=== PATIENT | female | born 1985 | race Two or more races ===

== ENCOUNTER → 2017-02-09 | Outpatient (CLI) | payer MEDICAID | END | disposition home or self-care (01) | LOC: CFH 08:14 | PROVIDERS: ATTEND Genetic Counselor, MS | DX: N94.10 Unspecified dyspareunia (principal) | CPT/HCPCS: 76856 ==

== ENCOUNTER 2021-01-21 21:29 | Emergency (ER) | payer MEDICAID ==
[~2021-01-21] VITALS: Ht 162.6 cm; Wt 72.8 kg
--- NOTE | 2021-01-21 21:36 | NUR ---
EKG DONE IN TRIAGE.
--- NOTE | 2021-01-21 23:07 | NUR ---
PA STUDENT AT BEDSIDE FOR ASSESSMENT.
[2021-01-21] MEDS ORDERED: PLEASE ENTER ALLERGIES MC SCH (23:45)
[2021-01-22] MEDS ORDERED: ONDANSETRON 2MG/ML, 2ML IVPush ONE
[2021-01-22] MEDS ORDERED: ONDANSETRON 2MG/ML, 2ML ONE
[2021-01-22] MEDS ORDERED: SODIUM CHLORIDE FLUSH 10ML SYR IVF ONE
[2021-01-22] MEDS ORDERED: KETOROLAC 30 MG/1 ML IVPush ONE
[2021-01-22] MEDS ORDERED: KETOROLAC 30 MG/1 ML ONE
[2021-01-22 00:07] LABS: BASOPHILS % (AUTO) 1 % (0-1); EOSINOPHILS % (AUTO) 1 % (1-7); LYMPHOCYTES % (AUTO) 30 % (22-44); MEAN CORPUSCULAR HEMOGLOBIN 29.4 pg (27.0-34.8); MEAN CORPUSCULAR HGB CONC 33.4 g/dL (32.4-35.8); MEAN PLATELET VOLUME 8.1 fL (7.4-10.4); MONOCYTES % (AUTO) 9 % (2-9); NEUTROPHILS % (AUTO) 59 % (42-75); PLATELET COUNT 310 x10^3/uL (130-400); RED BLOOD COUNT 4.29 x10^6/uL (3.82-5.3); RED CELL DISTRIBUTION WIDTH 16.5 % (9.6-15.2)
[2021-01-22 00:18] LABS: ALANINE AMINOTRANSFERASE 23 U/L (12-78); ALBUMIN 3.3 g/dL (3.4-5.0); ANION GAP 6 mmol/L (5-15); CALCIUM 8.7 mg/dL (8.5-10.1); CHLORIDE 105 mmol/L (98-107); CREATININE 0.66 mg/dL (0.55-1.02)
[2021-01-22 00:23] LABS: ALKALINE PHOSPHATASE 54 U/L (45-117); BILIRUBIN,TOTAL 0.3 mg/dL (0.2-1.0); TOTAL PROTEIN 7.7 g/dL (6.4-8.2); TROPONIN I < 0.015 ng/mL (0.000-0.045)
[2021-01-22 01:18] VITALS: BP 110/63
== END 2021-01-22 01:19 | disposition home or self-care (01) ==
LOC: ED 23:59
DX: R09.1 Pleurisy (principal); R07.1 Chest pain on breathing; E11.9 Type 2 diabetes mellitus without complications; G43.909 Migraine, unspecified, not intractable, without status migrainosus; J45.909 Unspecified asthma, uncomplicated; E03.9 Hypothyroidism, unspecified; Z90.49 Acquired absence of other specified parts of digestive tract
CPT/HCPCS: 36415; 71045; 80053; 84484; 84703; 85025; 85379; 93005; 96374; 96375; 99285; J1885; J2405